=== PATIENT | male | born 1960 ===

== ENCOUNTER → 2017-01-02 | Outpatient (CLI) | payer BC ==
[~2017-01-02] VITALS: Ht 185.4 cm; Wt 118.2 kg
[~2017-01-02] MED LIST: SALINE FLUSH 10ml SYRINGE ONE
--- NOTE | 2017-01-02 20:39 | ADENOSINEF ---
STRESS TEST DATE OF PROCEDURE January 02, 2017 INDICATION Preoperative clearance with chest pain. PROCEDURE Treadmill Myoview stress test. IMPRESSION 1. Baseline EKG is normal. 2. Patient walked a total of 7 minutes into stage III of Sage protocol. 3. 85% predicted maximal heart rate was exceeded. 4. He reported no angina. 5. There were no ischemic EKG changes. 6. Patient had a handful of PVCs during recovery. 7. 13 mCi of Myoview was given for rest images and 33.5 mCi for stress images. 8. Nuclear perfusion images revealed normal coronary perfusion with no scar or ischemia. 9. Quantitative ejection fraction is 53%. MTDD
--- NOTE | 2017-01-02 20:45 | ECHOF ---
ECHOCARDIOGRAM DATE OF PROCEDURE January 02, 2017 This is a two-dimensional echo with spectral Doppler, color-flow and M-mode. It was obtained in a patient with SVT. Left atrial dimension is normal. Left ventricular end-diastolic dimension is normal. Left ventricular wall thickness is normal. LV systolic function is normal with ejection fraction of 62%. Right atrium is normal. Right ventricle is normal. Aortic root dimension is normal. Mitral, aortic, tricuspid, pulmonary valves are morphologically normal with mild tricuspid regurgitation and trace of mitral regurgitation with normal estimated pulmonary artery systolic pressure of 28. There is no pericardial effusion. IMPRESSION 1. Normal LV systolic function with ejection fraction of 62%. 2. Mild tricuspid regurgitation with normal estimated pulmonary artery systolic pressure of 28. 3. Trace of tricuspid regurgitation. MTDD
== END ==
LOC: IMA 11:40
PROVIDERS: ATTEND Internal Medicine Cardiovascular Disease
DX: Z01.810 Encounter for preprocedural cardiovascular examination (principal); I07.1 Rheumatic tricuspid insufficiency; R07.2 Precordial pain
CPT/HCPCS: 78452; 93017; 93306; A9502